=== PATIENT | female | born 1935 | race Caucasian/White ===

== ENCOUNTER 2017-12-21 13:17 | Outpatient (CLI) | payer MEDICARE | END 2017-12-21 13:18 | disposition home or self-care (01) | LOC: BICMAMMO 13:17 | PROVIDERS: ATTEND Family Medicine | DX: Z12.31 Encounter for screening mammogram for malignant neoplasm of breast (principal) | CPT/HCPCS: 77063; 77067 ==

== ENCOUNTER 2018-09-11 13:16 | Outpatient (CLI) | payer MEDICARE ==
--- NOTE | 2018-09-11 14:49 | RAD ---
KUB: 09/11/2018 HISTORY: Renal stone disease. COMPARISON: 06/12/2017 FINDINGS: There is stool projecting over the colon. There are clips in the right upper quadrant, which suggest a prior cholecystectomy. There is a calcification in the right upper quadrant, projecting between the 10th and 11th ribs on th e right, measuring 5 mm, which may signify a 5 mm stone within the right kidney. There is a faint calcification in the left upper quadrant, probably in the region of the lower pole o f the left kidney, suggesting a punctate renal calculus in the 2 mm range. Two punctate calcificatio ns are seen in the left upper quadrant, projecting between the 11th and 12th ribs, suggesting two pun ctate stones within the upper pole of the left kidney, measuring up to approximately 3 mm. 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 IMPRESSION: Bilateral renal stone disease suspected, as detailed above. POS: [facility]
== END 2018-09-11 13:17 | disposition home or self-care (01) ==
LOC: RAD 13:16
PROVIDERS: ATTEND Urology
DX: N20.0 Calculus of kidney (principal)
CPT/HCPCS: 74018

== ENCOUNTER 2019-02-03 11:35 | Outpatient (CLI) | payer MEDICARE ==
--- NOTE | 2019-02-03 13:18 | MMO ---
Bilateral MAMMO Bilat Screen [facility]. CLINICAL HISTORY: Patient is 83 years old and is seen for diagnostic exam. The patient has the following family history of breast cancer: paternal aunt, malignant (generic). The patient has no personal history of cancer. VIEWS: The views performed were: bilateral craniocaudal with tomosynthesis and bilateral mediolateral oblique with tomosynthesis. FILMS COMPARED: The present examination has been compared to prior imaging studies performed at [facility] on 03/13/2013, 05/20/2014, 06/11/2015 and 12/21/2017. MAMMOGRAM FINDINGS: There are scattered fibroglandular densities. There are stable benign appearing calcifications seen in both breasts. There are also vascular calcifications. There are no suspicious masses, suspicious calcifications, or new areas of architectural distortion. IMPRESSION: THERE IS NO MAMMOGRAPHIC EVIDENCE OF MALIGNANCY. A ROUTINE FOLLOW-UP MAMMOGRAM IN 1 YEAR IS RECOMMENDED. THE RESULTS OF THIS EXAM WERE SENT TO THE PATIENT. ACR BI-RADS Category 2 - Benign finding MAMMOGRAPHY NOTE: 1. A negative mammogram report should not delay a biopsy if a dominant of clinically suspicious mass is present. 2. Approximately 10% to 15% of breast cancers are not detected by mammography. 3. Adenosis and dense breasts may obscure an underlying neoplasm.
== END 2019-02-03 11:36 | disposition home or self-care (01) ==
LOC: BICMAMMO 11:35
PROVIDERS: ATTEND Internal Medicine Geriatric Medicine
DX: Z12.31 Encounter for screening mammogram for malignant neoplasm of breast (principal); Z80.3 Family history of malignant neoplasm of breast
CPT/HCPCS: 77063; 77066; 77067; G0279

== ENCOUNTER 2020-01-07 07:32 | Outpatient (CLI) | payer MEDICARE ==
--- NOTE | 2020-01-07 08:57 | ULT ---
BILATERAL CAROTID DUPLEX ULTRASOUND: DATE: 01/07/2020 HISTORY: Carotid bruits. TECHNIQUE: Gill scale ultrasound with color flow and spectral Doppler imaging of the extracranial carotid artery systems performed bilaterally. FINDINGS: There is mild plaque formation on either side. The peak systolic velocity in the right ICA measures 118 cm/second with a systolic ratio of 1.20. The peak systolic velocity in the left ICA measures 133 cm/second with a systolic ratio of 1.26. Flow in both vertebral arteries remains antegrade. IMPRESSION: Moderate (50-69%) stenosis involving the left ICA. POS: [facility]
== END 2020-01-07 07:33 | disposition home or self-care (01) ==
LOC: ULT 07:32
PROVIDERS: ATTEND Family Medicine
DX: R09.89 Other specified symptoms and signs involving the circulatory and respiratory systems (principal); I65.22 Occlusion and stenosis of left carotid artery
CPT/HCPCS: 36415; 80053; 80061; 82306; 82607; 83036; 85025; 93880